=== PATIENT | male | born 1980 | race Caucasian/White ===

== ENCOUNTER 2019-04-03 03:18 | Emergency (ER) | payer SELFPAY ==
--- NOTE | 2019-04-03 04:12 | ER Document Report ---
ED General - General Chief Complaint: Shortness Of Breath Stated Complaint: TROUBLE BREATHING Time Seen by Provider: 04/03/19 04:11 Primary Care Provider: MICHELLE SHANNON MD [ACTIVE STAFF] - Follow up in 3-5 days Notes: Patient is a 39-year-old male that presents to the emergency department for chief complaint of body aches and cramping and syncopal episode. Patient states over the past few days she has been feeling not well, he states his been having diarrhea, over the period of time and he works outside, and he does not think he has been staying hydrated enough. He reports having cramping in his arms and le gs, and today he woke up coughing, and had a brief syncopal episode after the coughing. He denies having any chest pain, but feels somewhat short of breath. At this time he states his lightheadedness is completely resolved. His main complaint is the cramping which she describes as a aching sensation in his arms and legs, and rates the pain as a 3 out of 10. He denies having any abdominal pain, nausea or vomiting associated with his diarrhea. Denies any sick contacts, or travel, or consumption of undercooked foods. Past Medical History: Denies chronic medical conditions Past Surgical History: Denies surgical history Social History: Admits to smoking cigarettes, and drinking 6-12 beers on nearly a daily basis, and admits to occasional marijuana use. Family History: Reviewed and noncontributory for presenting illness Allergies: Reviewed, see documented allergy list. REVIEW OF SYSTEMS: Other than noted above, the 12 point review of systems was reviewed with the patient and were negative, all pertinent findings are included in the HPI. PHYSICAL EXAMINATION: Vital signs reviewed, nursing noted reviewed. GENERAL: Well-appearing, well-nourished and in no acute distress. HEAD: Atraumatic, normocephalic. EYES: Eyes appear normal, extraocular movements intact, sclera anicteric, conjunctiva are normal. ENT: nares patent, oropharynx clear without exudates. Moist mucous membranes. NECK: Normal range of motion, supple without lymphadenopathy LUNGS: Diffuse faint wheezing noted throughout all lung henriquez. No acute respiratory distress. HEART: Regular rate and rhythm without murmurs ABDOMEN: Soft, nontender, normoactive bowel sounds. No rebound, guarding, or rigidity. No masses appreciated. EXTREMITIES: Mild generalized tenderness to the limbs, with palpation, no erythema to the lower extremities, or edema noted, good range of motion, no pitting or edema. NEUROLOGICAL: No focal neurological deficits. Moves all extremities spontaneously Motor and sensory grossly intact on exam. PSYCH: Normal mood, normal affect. SKIN: Warm, Dry, normal turgor, no rashes or lesions noted on exposed skin TRAVEL OUTSIDE OF THE [place] IN LAST 30 DAYS: No - Related Data Allergies/Adverse Reactions: No Known Drug Allergies Allergy (Verified 04/03/19 03:21) Past Medical History - Social History Smoking Status: Current Every Day Smoker Family History: Reviewed & Not Pertinent Physical Exam - Vital signs Vitals: Pulse Resp BP Pulse Ox 80 20 146/76 H 97 04/03/19 03:23 04/03/19 03:23 04/03/19 03:23 04/03/19 03:23 Course - Re-evaluation Re-evalutation: Patient seen and examined vital signs reviewed. Laboratory data and/or imaging were ordered as appropriate for the patient's presenting symptoms and complaint, with consideration of any critical or life threatening conditions that may be associated with their obtained history and exam as noted above. Patient was treated with 2 L of IV fluids and a DuoNeb breathing treatment Results were reviewed when available and demonstrated unremarkable blood work, negative chest x-ray, negative EKG for concerning signs as noted, negative troponin, CK was only mildly elevated which may explain some of the patient's muscle cramping. 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 Results were discussed with the patient at this point, after careful consideration I feel that that patient can be discharged from the emergency department, the patient was educated treatments and reasons to return to the emergency department based on their presumed diagnosis as noted above, they were advised to followup with a primary care physician in 2-3 days. Patient was agreeable to plan of care. *Note is created using voice recognition software and may contain spelling, syntax or grammatical errors. Laboratory 04/03/19 04/03/19 04/03/19 04:35 04:35 04:35 WBC 8.9 RBC 4.98 Hgb 16.2 Hct 46.2 MCV 93 MCH 32.6 MCHC 35.1 RDW 12.5 Plt Count 232 Seg Neutrophils % 74.0 Lymphocytes % 19.0 Monocytes % 5.1 Eosinophils % 1.6 Basophils % 0.3 Absolute Neutrophils 6.6 Absolute Lymphocytes 1.7 Absolute Monocytes 0.5 Absolute Eosinophils 0.1 Absolute Basophils 0.0 Sodium 138.5 Potassium 4.0 Chloride 103 Carbon Dioxide 25 Anion Gap 11 BUN 11 Creatinine 0.71 Est GFR ( Amer) > 60 Est GFR (Non-Af Amer) > 60 Glucose 114 H Calcium 9.6 Total Bilirubin 0.9 Direct Bilirubin 0.2 Neonat Total Bilirubin Not Reportable Neonat Direct Bilirubin Not Reportable Neonat Indirect Bili Not Reportable AST 30 ALT 31 Alkaline Phosphatase 70 Creatine Kinase 269 H Troponin I < 0.012 Total Protein 7.1 Albumin 4.1 Chest X-Ray 04/03/19 04:20 IMPRESSION: Clear lungs. - Vital Signs Vital signs: Temp Pulse Resp BP Pulse Ox 98.2 F 80 15 122/75 98 04/03/19 05:59 04/03/19 03:23 04/03/19 06:00 04/03/19 05:59 04/03/19 06:00 - Laboratory Result Diagrams: 04/03/19 04:35 04/03/19 04:35 Laboratory results interpreted by me: 04/03/19 04:35 Glucose 114 H Creatine Kinase 269 H - EKG Interpretation by Me Additional EKG results interpreted by me: EKG demonstrated sinus rhythm with a ventricular rate of 72 bpm, normal axis, normal intervals, no evidence of acute ischemia, no ST elevation, no prior for comparison. Discharge - Discharge Clinical Impression: Shortness of breath, Muscle ache, Bronchospasm Condition: Stable Disposition: HOME, SELF-CARE Instructions: Myalagia (Muscle Pain) ([facility]) Additional Instructions: Please drink plenty of fluids particular when working outside, please follow-up with the primary care physician, and please use the albuterol inhaler, at least 3-4 times daily for the next several days, then every 4 hours if needed for wheezing and/or shortness of breath or excessive coughing. Referrals: MICHELLE SHANNON MD [ACTIVE STAFF] - Follow up in 3-5 days
[2019-04-03] MEDS ORDERED: RINGERS SOLUTION,LACTATED 1,000 ML IV PRN (04:20)
[2019-04-03] MEDS ORDERED: IPRATROPIUM/ALBUTEROL 0.5-2.5 MG/3 ML AMPUL NEB ONE ×2 (04:38→04:40)
--- NOTE | 2019-04-03 04:47 | RADIOLOGY REPORT (SQ) ---
CLINICAL HISTORY: cough COMPARISON: None. TECHNIQUE: XR CHEST 1 VIEW 04/03/2019 4:20 AM CDT FINDINGS: Cardiac silhouette is normal in size. Lungs are clear without consolidation, atelectasis, mass or edema. There is no pleural effusion. There is no pneumothorax. There are no acute osseous findings. IMPRESSION: Clear lungs.
[2019-04-03 05:10] LABS: ABSOLUTE EOSINOPHILS # (AUTO) 0.1 10^3/uL (0.0-0.6); ABSOLUTE LYMPHOCYTES (AUTO) 1.7 10^3/uL (0.5-4.7); ABSOLUTE MONOCYTES (AUTO) 0.5 10^3/uL (0.1-1.4); ABSOLUTE NEUT (AUTO) 6.6 10^3/uL (1.7-8.2); BASOPHILS % (AUTO) 0.3 % (0-2); EOSINOPHILS % (AUTO) 1.6 % (0-6); HEMATOCRIT 46.2 % (37.9-51.0); HEMOGLOBIN 16.2 g/dL (13.5-17.0); MEAN CORPUSCULAR HEMOGLOBIN 32.6 pg (27.0-33.4); MEAN CORPUSCULAR HGB CONC 35.1 g/dL (32.0-36.0); MEAN CORPUSCULAR VOLUME 93 fl (80-97); MONOCYTES % (AUTO) 5.1 % (3-13); PLATELET COUNT 232 10^3/uL (150-450); RED BLOOD COUNT 4.98 10^6/uL (4.35-5.55); RED CELL DISTRIBUTION WIDTH 12.5 % (11.5-14.0); TOTAL CELLS COUNTED % (AUTO) 100 %; WHITE BLOOD COUNT 8.9 10^3/uL (4.0-10.5)
[2019-04-03 05:27] LABS: ALANINE AMINOTRANSFERASE 31 U/L (21-72); ALBUMIN 4.1 g/dL (3.5-5.0); ALKALINE PHOSPHATASE 70 U/L (38-126); ANION GAP 11 (5-19); ASPARTATE AMINO TRANSFERASE 30 U/L (17-59); BILIRUBIN,DIRECT 0.2 mg/dL (0.0-0.4); BILIRUBIN,TOTAL 0.9 mg/dL (0.2-1.3); BLOOD UREA NITROGEN 11 mg/dL (7-20); CALCIUM 9.6 mg/dL (8.4-10.2); CARBON DIOXIDE 25 mmol/L (22-30); CHLORIDE 103 mmol/L (98-107); CREATINE KINASE 269 U/L (55-170); GLUCOSE 114 mg/dL (75-110); SODIUM 138.5 mmol/L (137-145); TOTAL PROTEIN 7.1 g/dL (6.3-8.2)
[2019-04-03] MEDS ORDERED: ALBUTEROL SULFATE HFA (90 MCG/PUFF) 8 GM MDI (1 MDI/ER DISP) IH ONE (05:49)
[2019-04-03 06:06] VITALS: BP 122/75
--- NOTE | 2019-04-03 10:33 | EKG REPORT ---
SEVERITY:- OTHERWISE NORMAL ECG - SINUS ARRHYTHMIA, RATE [id number] : Confirmed by: Deshawn Carrera 03-Apr-2019 10:33:05
== END 2019-04-03 06:06 | disposition home or self-care (01) ==
LOC: ER 03:18
DX: J98.01 Acute bronchospasm (principal); R06.02 Shortness of breath; M79.10 Myalgia, unspecified site; R55 Syncope and collapse; R19.7 Diarrhea, unspecified; R25.2 Cramp and spasm; R11.2 Nausea with vomiting, unspecified; R10.9 Unspecified abdominal pain; F17.210 Nicotine dependence, cigarettes, uncomplicated; F10.10 Alcohol abuse, uncomplicated
CPT/HCPCS: 93005; 94640; 99284; 96360; 36415; 82550; 85025; 80053; 84484; 71045; 93010; J7120; J3490; J7620

== ENCOUNTER 2019-04-26 05:20 | Emergency (ER) | payer SELFPAY ==
[2019-04-26 05:31] VITALS: BP 147/88
== END 2019-04-26 09:39 | disposition left against medical advice (07) ==
LOC: ER 05:20
DX: Z53.21 Procedure and treatment not carried out due to patient leaving prior to being seen by health care provider (principal)